=== PATIENT | female | born 1930 | race Hispanic/Latino ===

== ENCOUNTER 2017-07-14 23:36 | Inpatient (IN) | payer MEDICARE ==
[2017-07-15 00:21] LABS: ALT (SGPT) 102 U/L (8-55); AST (SGOT) 181 U/L (5-34); Albumin 3.2 g/dL (3.4-4.8); Alkaline Phosphatase 482 U/L (40-150); Anion Gap 14 mmol/L (10-20); BUN (Urea Nitrogen) 19 mg/dL (9.8-20.1); Bilirubin, Total 2.7 mg/dL (0.2-1.2); CK (CPK) 59 U/L (29-168); Calc. Creatinine Clearance 0 mL/min (70-130); Calcium 8.9 mg/dL (7.8-10.44); Carbon Dioxide 18 mmol/L (23-31); Chloride 111 mmol/L (98-107); Estimated GFR-MDRD 57; Globulin 3.8 g/dL (2.4-3.5); Glucose 91 mg/dL (83-110); Potassium 3.3 mmol/L (3.5-5.1); Sodium 140 mmol/L (136-145)
[2017-07-15 00:23] LABS: Hemoglobin 8.9 g/dL (12.0-16.0); Mean Corpuscular HGB CONC 32.7 g/dL (32.0-36.0); Mean Corpuscular Hemoglobin 34.8 pg (27.0-31.0); Mean Platelet Volume 8.7 fL (7.4-10.4); Platelet Count 135 thou/uL (130-400); RBC Distribution Width 14.6 % (11.5-14.5); Red Blood Cell (RBC) Count 2.54 mill/uL (4.20-5.40); White Blood Cell (WBC) Count 6.8 thou/uL (4.8-10.8)
[2017-07-15 00:27] LABS: CKMB 1.2 ng/mL (0-6.6)
[2017-07-15 00:30] LABS: Prothrombin Time 40.8 SEC (12.0-14.7)
[2017-07-15] MEDS ORDERED: Nitroglycerin 2% Ointment 1 INCH/1 GM Packet ONE (00:30)
[2017-07-15 00:31] LABS: PTT 85.4 SEC (22.9-36.1)
[2017-07-15 00:37] LABS: #Eosinphils 0.1 thou/uL (0.0-0.7); #Lymphocytes 2.3 thou/uL (1.20-3.40); #Monocytes 0.8 thou/uL (0.11-0.59); #Neutrophils 3.4 thou/uL (1.40-6.50); %Basophils 0.7 % (0.0-1.0); %Eosinophils 2.1 % (0.0-10.0); %Lymphocytes 34.6 % (21.0-51.0); %Monocytes 12.1 % (0.0-10.0); %Neutrophils 50.5 % (42.0-75.0); MDiff Complete? YES; Macrocytosis SLIGHT = 6-15 cells (100X) (0-5/hpf)
[2017-07-15 01:24] LABS: Bilirubin Negative (Negative); Blood, Urine Moderate (Negative); Clarity CLEAR (Clear); Glucose, Urine (Dipstick) Negative (Negative); Leukocyte Negative (Negative); Nitrite Negative (Negative); Protein, Urine (Dipstick) Trace mg/dL (Neg-Trace); Specific Gravity, Urine 1.006 (1.002-1.036)
[2017-07-15 01:27] LABS: Bacteria/HPF None Seen HPF (None Seen); Hyaline Casts/LPF 0-3 HYALINE CAST LPF (0-3 Hyaline); Squamous Epithelial 0-3 HPF (0-3); WBC/HPF 0-3 HPF (0-3)
[2017-07-15] MEDS ORDERED: Potassium Chloride 20 MEQ TAB PO SCH ×2 (01:45→10:00)
[2017-07-15 03:13] LABS: Prothrombin Time 42.7 SEC (12.0-14.7)
[2017-07-15 03:30] LABS: INR-International Normal Ratio 4.2
[2017-07-15 03:33] LABS: Troponin I 0.027 ng/mL (< 0.028)
--- NOTE | 2017-07-15 03:35 | HP ---
DATE OF ADMISSION: 07/15/2017 PRIMARY CARE PHYSICIAN: Dr. Wero cronin at [facility]. PRIMARY ENTERPRISE RESOURCE ANALYST: Dr. Alonso at [facility]. CHIEF COMPLAINT: Chest pain. HISTORY OF PRESENTING ILLNESS: Ms. Shea is an 86-year-old female with known past medical history o f breast cancer status post radiation and surgery as well as dyslipidemia, hypertension, coronary art kingston disease, status post stenting with recent diagnosis of some sort of leukemia: presented to emerge ncy room with the above-mentioned complaint. Patient's history is mainly obtained by discussion with the family member. The patient is a poor historian. Electronic medical records have been reviewed. According to Ms. Shea's family, she had sharp chest pain, last night when she went to bed. It star uzma in the left chest under her left breast and went to the right side. She denies any nausea, vomit ing, diarrhea. She does have some abdominal pain. She also endorses recent flu-like symptoms. She did not take any antibiotics or influenza medication for that. Otherwise, she denies any orthopnea, PND. She denies any chest pain. In the emergency room, her blood pressure was elevated to 199/73. Her cardiac enzymes were done and were negative. Her BNP is slightly elevated to 245. EKG showed left ventricular hypertrophy with re polarization abnormality, otherwise unremarkable. She is now being admitted for further evaluation o f chest pain. She does have elevated liver enzymes as well as hyperbilirubinemia on lab work, which is rather new f or her. She also has elevated lipase at 97. With regard to her diagnosis of leukemia, not much hist ory is obtained at this time as the patient's family really do not know what type of leukemia it is. She was recently diagnosed and has not yet started treatment. For some reason, she has been put on Coumadin, but was recently found to have elevated "numbers." The family reports that they have stopp ed the Coumadin 1 week ago and a home health care nurse comes once a week to get her blood drawn. Th e patient is also on aspirin and Plavix with a history of cardiac disease. They reported that stress test was done about 4 or 5 months ago, which was reportedly normal. She has received aspirin in the emergency room and is now being admitted for chest pain workup. She is currently symptom free. PAST MEDICAL HISTORY: 1. Hypertension. 2. Dyslipidemia. 3. History of coronary artery disease, status post stenting. 4. History of breast cancer, status post surgery and radiation therapy. 5. New diagnosis of leukemia. 6. Chronic anticoagulation with Coumadin. 7. Recent Coumadin coagulopathy. PAST SURGICAL HISTORY: 1. Cholecystectomy. 2. History of left mastectomy. PSYCHIATRIC HISTORY: No Anxiety, depression. SOCIAL HISTORY: She lives with the family. No history of drug, tobacco, or alcohol abuse. FAMILY HISTORY: Cardiac problems in her father. ALLERGIES: CODEINE, SULFATE. HOME MEDICATIONS: Not obtainable at this time. The patient did not bring her list. This will be fu rther verified with the pharmacy in the morning. REVIEW OF SYSTEMS: The following complete review of systems was negative, except for those mentioned in the history and physical: Constitutional: Weight loss or gain, ability to conduct usual activit ies. Skin: Rash, itching. Eyes: Double vision, pain. ENT/Mouth: Nose bleeding, neck stiffness, pain, tenderness. Cardiovascular: Palpitations, dyspnea on exertion, orthopnea. Respiratory: Shor tness of breath, wheezing, cough, hemoptysis, fever, or night sweats. Gastrointestinal: Poor appeti te, abdominal pain, heartburn, nausea, vomiting, constipation, or diarrhea. Genitourinary: Urgency, frequency, dysuria, nocturia. Musculoskeletal: Pain, swelling. Neurologic/Psychiatric: Anxiety, depression. Allergy/Immunologic: Skin rash, bleeding tendency. LABORATORY DATA: CBC shows WBCs at 6.8, hemoglobin 8.9, hematocrit 27.1, platelet count of 137. INR is 4.0. D-dimer is negative. Serum chemistries show potassium of 3.3, chloride 111, bicarbonate 18 . Total bilirubin 2.7, AST 181, ALT 102, alkaline phosphatase 482, CK-MB and troponin within normal limits. BNP 245, lipase 97. Urinalysis has moderate blood and 7-10 rbc's. Chest x-ray by my interv iew has no evidence to suggest pleural effusion or edema. PHYSICAL EXAMINATION: VITAL SIGNS: Upon presentation blood pressure 199/73, pulse of 78, respirations 20, saturating 97% o n room air, temperature 98.7. GENERAL: No acute distress, awake, alert, oriented x3. She appears mildly jaundiced. She is awake, alert, and oriented x3. HEENT: Mucous membrane is moist and pink. No oropharyngeal exudate or erythema. Head is normocepha lic, atraumatic. Pupils equal, reactive to light and accommodation. Extraocular movements intact. NECK: Supple without any lymphadenopathy, JVD, or bruit. CHEST: Clear to auscultation without any wheezing, rales, or rhonchi. Rate and rhythm is regular wi thout any murmur, rubs, or gallops. ABDOMEN: Tender to palpation all over. No rebound, guarding, or rigidity. It is soft, no hepatospl enomegaly. EXTREMITIES: Free of any cyanosis, clubbing, or edema. NEUROLOGIC: Nonfocal. SKIN: Free of any rashes or bruises. Feels warm and dry to touch. PSYCHIATRIC: Normal affect. IMPRESSION AND PLAN: 1. Chest pain. It is unclear if the patient's symptoms are actually cardiac versus secondary to abd ominal pain. Given her extensive history of coronary artery disease, we will admit her to the hospit al and perform a transthoracic echocardiogram. We will try to get the records from her most recent e chocardiogram done as an outpatient at [facility]. We will also consult Cardiology for further recommendations and continue to trend serial cardiac enzymes. We will continue her aspirin and Plavix for now once the dosages are confirmed. She will be admitted to telemetry unit. 2. Elevated liver enzymes, hyperbilirubinemia, and elevated lipase. Likely mild pancreatitis. We w ill obtain a CT scan of the abdomen and pelvis and repeat the labs in the morning. She will be n.p.o . for now and we will start her on normal saline. 3. Coumadin coagulopathy. INR is trending down as per the family. We will continue to monitor for now. Avoid any further anticoagulants. It is unclear why the patient takes Coumadin on a regular ba sis. At this time, there is no evidence to suggest active bleeding though she does have some blood i n her urine. This will be further monitored. 4. Elevated BNP. The patient is clinically euvolemic. Echocardiogram has been ordered. Gentle IV fluid hydration with strict I's and O's will be monitored. 5. History of recent diagnosis of leukemia, unclear what type of leukemia this is. She will continu e to follow up with her oncologist at [facility]. Monitor H&H. 6. Macrocytic anemia of unclear etiology. H&H is stable at this time. We will defer the continued treatment to her primary care physician at this time. 7. Hypokalemia. We will replace and recheck in the morning. 8. Metabolic acidosis likely due to recent upper respiratory tract illness. We will start her on ge ntle IV fluid hydration and monitor. 9. Code status: FULL CODE, discussed with the patient. 10. Deep venous thrombosis and gastrointestinal prophylaxis. DISPOSITION: Ms. Shea is being admitted to the hospital for further workup of chest pain. She is under observation status for now. Further management will depend upon her clinical course.
[2017-07-15] MEDS ORDERED: Loratadine 10 MG TAB PO PRN (04:42)
[2017-07-15] MEDS ORDERED: Mag-Al 1200 mg/1200 mg/30 ML UDCUP PO PRN (04:42)
[2017-07-15] MEDS ORDERED: Senokot 8.6 MG TAB PO PRN ×2 (04:42)
[2017-07-15] MEDS ORDERED: Calcium Carbonate 500 MG ChewTAB PO PRN (04:42)
[2017-07-15] MEDS ORDERED: Diabetic Tussin 200 MG/10 ML UDCUP PO PRN (04:42)
[2017-07-15] MEDS ORDERED: Acetaminophen 325 MG TAB PO PRN (04:42)
[2017-07-15] MEDS ORDERED: hydrALAZINE 20 MG/ML VIAL SLOW IVP PRN (04:42)
[2017-07-15] MEDS ORDERED: traMADol HCl 50 MG TAB PO PRN (04:42)
[2017-07-15] MEDS ORDERED: Benzonatate 100 MG CAP PO PRN (04:42)
[2017-07-15] MEDS ORDERED: Nitroglycerin 0.4 MG TAB (25 Tab Bottle) SL PRN (04:42)
[2017-07-15] MEDS ORDERED: Ondansetron HCl/PF 4 MG/2 ML Vial IVP PRN (04:42)
[2017-07-15] MEDS ORDERED: cloNIDine 0.1 MG TAB PO PRN (04:42)
[2017-07-15] MEDS ORDERED: Bisacodyl 5 MG TAB PO PRN ×2 (04:42)
[2017-07-15 06:34] LABS: Troponin I 0.023 ng/mL (< 0.028)
--- NOTE | 2017-07-15 07:49 | RAD ---
CHEST 2 IEWS: COMPARISON: 10/05/14. HISTORY: Chest pain. FINDINGS: Slight elongation of the aorta. Normal cardiac silhouette. The pulmonary vessels and hilum are norm al. Costophrenic angles are clear. Hyperinflation with chronic changes. No consolidation or mass. No pneumothorax or osseous abnormalities. IMPRESSION: 1. No acute cardiopulmonary process. 2. Hyperinflation/chronic obstructive pulmonary disease. Chronic changes. POS: [facility]
[2017-07-15] MEDS ORDERED: Aspirin 325 MG TAB PO SCH (08:00)
[2017-07-15 08:57] VITALS: BMI 28.1
[2017-07-15] MEDS ORDERED: Famotidine 20 MG TAB PO SCH (09:00)
--- NOTE | 2017-07-15 09:52 | PDOC.EVN ---
Event Note - Event Note Event Note: Admitted after midnight. Pt c/o abdominal pain, but improving, denies nausea or vomiting Reviewed labs and vital signs. Physicla exam: General: Awake, alert CVS: S1s2 present, rrr, no murmur RS: No wheezing, no rhonchi GI: Soft, nttp, nio guarding PROPELLANT ASSEMBLER: Awake, alert Ct positive for pancretaic mas, positive lung nodule Plan: 1. Chets pain 2. Abnormal LFT 3. Abddominal pain Plan: Will consult GI to evaluate patient. Will check hepatitis panel. will check ct chest to evaluate lung nodule D/W PT & rn
[2017-07-15] MEDS: Sodium Chloride 0.9% 1,000 ML IV SCH (10:03)
--- NOTE | 2017-07-15 10:34 | CT ---
PRELIMINARY REPORT/[facility]/EMERGENCY AFTER HOURS PROCEDURE: EXAM: CT Abdomen and Pelvis With Intravenous Contrast EXAM DATE/TIME: Exam ordered 07/15/2017 3:24 AM CLINICAL HISTORY: 86 years old, female; Pain; Abdominal pain; Generalized TECHNIQUE: Axial computed tomography images of the abdomen and pelvis with intravenous contrast. Coronal reformatted images were created and reviewed. CONTRAST: 70 mL of ISOVUE administered intravenously. COMPARISON: No relevant prior studies available. FINDINGS: Lower thorax: There is nonspecific interstitial thickening at the lung bases. There is a 6 mm RIGHT l ower lobe pulmonary nodule. ABDOMEN: Liver: Normal. Gallbladder and bile ducts: There is moderate intrahepatic biliary ductal dilatation and marked commo n bile duct dilatation possibly related to poorly defined pancreatic head mass measuring up to 2.3 x 2.0 cm. No calcified stones. Pancreas: There is partial atrophy of the pancreas with innumerable cystic areas extending from a dil ated pancreatic duct suggestive of IPMN. Spleen: The spleen is normal. Adrenals: The adrenal glands are normal. Kidneys and ureters: There is nonspecific prominence of the bilateral renal collecting systems withou t obvious obstruction. Stomach and bowel: Moderate diverticulosis is present in the sigmoid and descending colon. No obstruc tion. No mucosal thickening. Appendix: A normal appendix is identified. PELVIS: Bladder: The bladder is normal. Reproductive: The uterus is normal. ABDOMEN and PELVIS: Intraperitoneal space: Normal. No free air. No significant fluid collection. Bones/joints: No acute fracture. No dislocation. Soft tissues: Normal. Vasculature: Normal. No abdominal aortic aneurysm. Lymph nodes: Normal. No enlarged lymph nodes. IMPRESSION: There is moderate intrahepatic biliary ductal dilatation and marked common bile duct dilatation possi remy related to poorly defined pancreatic head mass measuring up to 2.3 x 2.0 cm. There is partial atrophy of the pancreas with innumerable cystic areas extending from a dilated pancr eatic duct suggestive of IPMN. Correlation with prior imaging if available is advised. Findings were discussed with Edwin Jacobs at 07/15/2017 3:46 AM HORSERADISH MAKER. Thank you for allowing us to participate in the care of your patient. Dictated and Authenticated by: Bashir Toledo MD 07/15/2017 3:48 AM Central Time ([place] & [place]) FINAL REPORT ABDOMEN CT WITH CONTRAST PELVIC CT WITH CONTRAST: Date: 07/15/17 HISTORY: Chest pain. Abdominal pain. COMPARISON: 03/10/16. TECHNIQUE: Abdomen and pelvis CT are performed with IV and enteric contrast. Coronal reformatted images are subm itted for interpretation. FINDINGS/IMPRESSION: This report is in agreement with the preliminary report by [facility]. 6 mm nodule in the right lower lobe. Chronic changes in lung bases noted. There is intra and extrahepatic biliary dilatation. There is a possible ill-defined pancreatic head mass measuring 2.2 x 2.0 cm. There is atrophy of the majority of the pancreas. Multiple cystic areas from a dilated pancreatic duct suggesting IPMN are noted. There is evidence of diverticulosis, without evidence of diverticulitis. Normal caliber appendix. No eviden ce of small bowel obstruction. POS: [facility]
--- NOTE | 2017-07-15 10:38 | ULT ---
ULTRASOUND ABDOMEN COMPLETE: Date: 07/15/17 Time: 0200 hours HISTORY: 86-year-old female with upper abdominal pain. FINDINGS: Liver: Diffuse moderate dilation of the intrahepatic biliary tree. Hepatic size within normal limits. Gallbladder: Surgically absent. Common duct: Massively dilated to approximately 18 mm caliber. Ill-defined, heterogeneously hypoechoi c possible mass at inferior aspect of common bile duct in the region of the pancreatic head, suspicio us for neoplasm. Spleen: No splenomegaly. Pancreas: In addition to the ill-defined hypoechoic possible small neoplastic mass obstructing the co mmon duct, the pancreatic duct is also diffusely dilated up to 5 mm. Kidneys: No hydronephrosis. Abdominal aorta: No aneurysm. Inferior vena cava: Unremarkable. IMPRESSION: 1. Interval worsening of dilation of the biliary tree compared to prior CT of 09/01/15. The common d uct is severely dilated, while the intrahepatic biliary tree is moderately dilated. This is suspected to be due to a small, obstructing neoplasm at the pancreatic head. 2. Diffuse dilation of the pancreatic duct, also suspected to be due to obstruction by pancreatic he ad neoplasm. 3. Status post cholecystectomy. ANA Emmanuel POS: [facility]
--- NOTE | 2017-07-15 15:56 | CON ---
DATE OF CONSULTATION: 07/15/2017 HISTORY OF PRESENT ILLNESS: Ms. Shea is an 86-year-old patient of Dr. Edouard Alonso of [facility], come to the hospital for primarily epigastric pain, but some radiated to the low substernal area and some to the mid epigastric area. Ms. Shea is a pleasant 86-year-old woman. She came to the hospital last night with these symptoms as outlined above. She has had the influenza last week according to the family. She had no nausea, vomiting, or diarrhea; the predominant symptom was abdominal pain. She thinks that she had the flu. Looking at the records, I do not know that there was a definitive d iagnosis made of that. She did not receive any influenza medication. In the emergency room, she has hypertension and a slight increased BNP. The patient is pain free now . PAST MEDICAL HISTORY: 1. She has a history of breast cancer, radiation and surgery. 2. Hypertension. 3. Coronary artery disease with stenting done. The family thinks 10 years ago 3 stents were placed, those records are not available to me. She also is on Coumadin. She is also receiving aspirin. 4. Hyperlipidemia. 5. Coronary artery disease. 6. New diagnosis of leukemia. 7. Chronic anticoagulation for Coumadin with a markedly increased Coumadin levels recently. The indication for the Coumadin is unknown to me. SOCIAL HISTORY: Lives with her family. No drugs or alcohol abuse. FAMILY HISTORY: Cardiac problems. ALLERGIES: CODEINE and SULFA. HOME MEDICATIONS: 1. Warfarin 2. Simvastatin. 3. Metoprolol. 4. Lisinopril. 5. Clopidogrel. 6. She has apparently been off Coumadin for a week. REVIEW OF SYSTEMS: CONSTITUTIONAL: No significant weight gain or loss. VISION: No changes. HEARING: No changes. PULMONARY: No shortness of breath. CARDIAC: As outlined above. GASTROINTESTINAL: As outlined above abdominal pain. MUSCULOSKELETAL: No unusual joint pains. SKIN: No rashes. PHYSICAL EXAMINATION: GENERAL: A very small 86-year-old woman. VITAL SIGNS: 4 foot 3 inches tall, 104 pounds. EYES: Sclerae nonicteric. MOUTH: Mucous membranes moist. NECK: Supple. No lymphadenopathy. LUNGS: Clear. No wheezing, rales, or rhonchi. CARDIOVASCULAR: Normal S1, normal S2. I do not hear murmur, rub, or gallop. ABDOMEN: Soft, nontender. No hepatosplenomegaly. EXTREMITIES: Warm and dry. No clubbing or cyanosis. There is no edema. HEMATOLOGIC: No unusual bruising. PSYCHIATRIC: Mood and affect normal. PERTINENT LABORATORY DATA: The liver function tests were markedly elevated, AST 181, ALT 102. Tropo oxana levels are negative. EKG; sinus rhythm, occasional episodes of supraventricular tachycardia. ASSESSMENT: 1. Symptoms were predominantly abdominal pain. 2. History of coronary artery disease. 3. Chronic anticoagulation with uncertain indication, most recent INR is 4.2. Apparently she has be en off Coumadin now for a week. 4. Increased liver function tests. 5. Hypertension. 6. Ejection fraction of 55-60%, on echocardiogram. PLAN: 1. For completeness, stress testing to be done. 2. Need evaluation for the source of the abdominal pain which appears to be the symptoms that ruperto t her here.
[2017-07-15] MEDS ORDERED: Iopamidol 370 76% 50 ML VIAL FS ONE (16:16)
[2017-07-15] MEDS ORDERED: ISOVUE-370 76%-LOCM 1 ML ONE (16:16)
--- NOTE | 2017-07-15 16:48 | CON ---
DATE OF CONSULTATION: 07/15/2017 REASON FOR CONSULTATION: Pancreatic mass and elevated LFTs. HISTORY OF PRESENT ILLNESS: Renetta Shea is a very pleasant 86-year-old woman, I am able to converse with her in Syriac, however, she is not really able to give great details about her past medical history. She evidently has a past history of breast cancer, status post left mastectomy and radiation, also coronary artery disease status post stent and there is some question of possible recently diagnosed leukemia for which it does not appear she has been on any treatment. For some reason, she is also on Coumadin which was stopped about a week ago evidently due to supratherapeutic INR. She presented to the hospital last night with what she describes as acute onset transient pain in the lower chest and epigastrium. This seemed to stutter along and was quite severe for several hours, though she is feeling a lot better now. She denies any nausea or vomiting with this. She denies any change in bowel habits. Upon presentation, there were no acute ECG changes and she actually had a echocardiogram showing ejection fraction of 50% to 55%. However, her LFTs were noted to be markedly elevated with bilirubin of 2.7, alkaline phosphatase 482, AST 181, ALT 102, lipase mildly elevated to 97 and INR supratherapeutic at 4.2. She then had a CT of the abdomen and pelvis and an abdominal ultrasound: both these studies show severe dilation of the common bile duct to 18 mm, as well as a diffusely dilated pancreatic duct to 5 mm. There is an ill-defined pancreatic mass in the pancreatic head near the end of the bile duct, which appears to be causing compression of the bile duct. This mass measures 2.3 x 2 cm. There is also pancreatic atrophy and multiple cystic lesions in the pancreas, suggestive of possible IPMN. Again, currently the patient says she is feeling quite a bit better. She is not currently having any pain. She denies any recent weight loss. REVIEW OF SYSTEMS: Full review of systems including constitutional, head, eyes , ears, nose, throat, GI, , cardiovascular, respiratory, musculoskeletal, and neurologic systems is negative except as noted in the HPI. PAST MEDICAL HISTORY: Hypertension; hyperlipidemia; coronary artery disease, status post stent placement; chronic anticoagulation with Coumadin; history of breast cancer, status post left mastectomy and radiation therapy; new diagnosis of leukemia; cholecystectomy. SOCIAL HISTORY: No drugs, tobacco or alcohol abuse. FAMILY HISTORY: Noncontributory. ALLERGIES: CODEINE and SULFATE. HOME MEDICATIONS: Plavix 75 mg daily, warfarin 5 mg daily, simvastatin 20 mg daily, metoprolol 25 mg b.i.d., lisinopril 10 mg daily. PHYSICAL EXAMINATION: VITAL SIGNS: Temperature 97.7, pulse 79, blood pressure 136/64, 94% oxygen saturation on room air. GENERAL: Frail elderly 86-year-old woman, sitting up in the chair comfortably, in no acute distress. SKIN: Mild jaundice, no rash visible or palpable. EYES: Mild scleral icterus. Extraocular movements intact. ENT: Mucous membranes moist, no oral lesions. LYMPH: No submandibular or supraclavicular lymphadenopathy. THYROID: Nontender to palpation. HEART: Regular rate and rhythm. LUNGS: Clear to auscultation bilaterally. ABDOMEN: Nondistended. Bowel sounds present. Soft, but tender to palpation in the epigastrium, but no guarding or rebound tenderness. No masses or organomegaly appreciated to palpation. EXTREMITIES: No peripheral edema. VESSELS: Radial pulses 2+ bilaterally. NEUROLOGICAL: Cranial nerves II-XII intact bilaterally. No focal deficits. LABORATORY STUDIES: Sodium 140, potassium 3.3, BUN 19, creatinine 0.94, alkaline phosphatase 482, CK 59, albumin 3.2, lipase 97. BNP 245.4, INR 4.2, hemoglobin 8.9, WBC 6.8, platelets 135. IMAGING STUDIES: Abdominal ultrasound shows severe dilation of common bile duct to 18 mm and diffuse pancreatic ductal dilation to 5 mm. There is an ill- defined pancreatic head mass. She is post-cholecystectomy. CT of the abdomen and pelvis demonstrated again a poorly defined pancreatic head mass measuring 2.3 x 2 cm, marked intra and extrahepatic biliary dilation, but no calcified stone. There is pancreatic atrophy as well as multiple pancreatic cysts consistent with possible IPMN. Echocardiogram demonstrates ejection fraction of 50% to 55%. ASSESSMENT AND PLAN: 1. Pancreatic head mass. 2. Biliary obstruction, likely secondary to pancreatic head mass. I had a kat discussion with the patient as well as her daughter over the phone, that her presentation is concerning for possible pancreatic malignancy with biliary obstruction. There is no evidence of cholangitis. The patient is actually minimally symptomatic, hemodynamically stable and afebrile at this time; however , this certainly needs further expedited workup and characterization. The patient would best be served at a tertiary center where she could get an endoscopic ultrasound with fine needle aspiration of this pancreatic head lesion. ERCP for possible biliary stent placement could be performed at the same time. I think it would be in the patient's best interest to be transferred for this purpose, rather than having an ERCP done here. We will go ahead and try to arrange for transfer to a tertiary center for EUS and ERCP. Thank you for the consultation. Please call anytime with questions or concerns. EKTA
[2017-07-15 23:55] VITALS: BP 168/74; TEMP 98.7
[2017-07-16] MEDS: Sodium Chloride 0.9% 1,000 ML IV SCH (00:04)
[2017-07-16] MEDS ORDERED: Prevnar 13-Val Conj/PF 0.5 ML SYRINGE IM ONE (09:00)
--- NOTE | 2017-07-20 15:15 | EKG ---
Test Reason : Blood Pressure : / mmHG Vent. Rate : 079 BPM Atrial Rate : 079 BPM P-R Int : 150 ms QRS Dur : 082 ms QT Int : 408 ms P-R-T Axes : 027 -15 003 degrees QTc Int : 467 ms Normal sinus rhythm Left ventricular hypertrophy with repolarization abnormality Abnormal ECG Confirmed by DAGOBERTO RIVERA, ELKIN ([id number]), editor city MARITZA MYERS ([id number]) on 07/20/2017 3:14:28 PM Referred By: Confirmed By:ELKIN ARENAS MD
== END 2017-07-16 01:53 | disposition short-term general hospital (02) | DRG 438 ==
LOC: ERS 23:36 → ERHOLD 07-15 01:40 → 2SW 07-15 02:20 → OBSVTOIN 07-15 15:39
PROVIDERS: ADMIT Internal Medicine; ATTEND Internal Medicine
DX: K86.9 Disease of pancreas, unspecified (principal); K83.1 Obstruction of bile duct; E87.2 Acidosis; C95.90 Leukemia, unspecified not having achieved remission; D53.9 Nutritional anemia, unspecified; R91.1 Solitary pulmonary nodule; I10 Essential (primary) hypertension; E78.5 Hyperlipidemia, unspecified; E80.6 Other disorders of bilirubin metabolism; R07.89 Other chest pain; E87.6 Hypokalemia; K86.2 Cyst of pancreas; I25.10 Atherosclerotic heart disease of native coronary artery without angina pectoris; Z95.5 Presence of coronary angioplasty implant and graft; Z90.49 Acquired absence of other specified parts of digestive tract; Z85.3 Personal history of malignant neoplasm of breast; T45.515D Adverse effect of anticoagulants, subsequent encounter; R79.1 Abnormal coagulation profile
CPT/HCPCS: 36415; 71046; 74177; 76700; 80053; 81003; 81015; 82553; 83690; 83880; 84484; 85025; 85379; 85610; 85730; 93005; 93306; 96360; G8978-GP-CJ; G8979-GP-CJ; G8980-GP-CJ